=== PATIENT | male | born 1995 | race Caucasian/White ===

== ENCOUNTER 2021-07-05 10:51 | Emergency (ER) | payer BC, SELFPAY ==
[2021-07-05 11:00] VITALS: BP 118/74; BP 122/72; PULSE 80; PULSE 81; RESP 18; TEMP 36.6; O2SAT 100; O2SAT 97; BMI 29.0
--- NOTE | 2021-07-05 12:18 | ED.WEAKNESS ---
HPI - Weakness General Chief complaint: Weakness Stated complaint: etoh last night, not feeling well today Time Seen by Provider: 07/05/21 11:00 Source: patient and family Mode of arrival: ambulatory Limitations: no limitations History of Present Illness HPI Narrative: Patient tells me that he was out drinking alcohol last night. Tells me he drank quite a lot and did eat or drink any water. Today was he at a class. He stood up to go to the bathroom and felt very lightheaded and hot all over. He was witnessed by a friend to pass out. He was caught by them so there is no head strike or fall to the ground. He was incontinent of urine. There was no shaking activity. Patient rouses on his own. Tells me he cannot eat or drink any foods morning prior to the class. On arrival to the ER he is feeling tired but overall feeling okay. No headache, abdominal pain, vomiting, palpitations, shortness of breath or CP Related Data Allergies Allergy/AdvReac Type Severity Reaction Status Date / Time nut - unspecified [NUTS] Allergy Intermediate ANGIOEDEMA Unverified 05/08/20 16:14 all nuts Allergy Unknown throat Uncoded 10/18/17 00:00 swelling, hives Review of Systems Review of Systems: Yes all other systems are reviewed and are negative Constitutional: Constitutional: Reports no additional constitutional complaints, Denies body ache(s), Denies chills, Denies fever(s), Denies headache(s) and Denies weakness Eyes: Eyes: Reports no additional eye complaints and Denies change in vision ENT: Reports system reviewed and no additional complaints, except as documented, Denies dizziness, Denies headache(s), Denies nasal congestion, Denies nasal discharge and Denies neck pain Cardiovascular: Cardiovascular: Reports no additional cardiovascular complaints, Denies chest pain, Reports syncope, Denies leg edema and Denies dyspnea Respiratory: Respiratory: Reports no additional respiratory complaints, Denies cough and Denies dyspnea Gastrointestinal: Gastrointestinal: Reports no additional gastrointestinal complaints, Denies abdominal pain, Denies diarrhea, Denies nausea and Denies vomiting Genitourinary: Genitourinary: Denies urinary incontinence Musculoskeletal: Musculoskeletal: Reports no additional musculoskeletal complaints, Denies back pain, Denies arthralgias, Denies joint swelling, Denies neck pain, Denies numbness and Denies tingling Integumentary/Breasts: Skin/Breast: Reports system reviewed and no additional complaints, except as docu and Denies rash Neurologic: Reports system reviewed and no additional complaints, except as documented, Denies Abnormal speech present, Denies dizziness, Reports syncope, Denies headache(s), Denies numbness, Denies tingling and Denies weakness PMFSH Past Medical History Attestation statement: The following information was validated with the patient. Source: old records reviewed and nursing notes reviewed Social History Social History Advance Directives: No Advance Directives Information Provided: No Physical Exam Vital Signs: Vital Signs: Last Vital Signs Temp 97.8 F 07/05/21 11:00 Pulse 81 07/05/21 11:00 Resp 18 07/05/21 11:00 BP 118/74 07/05/21 11:00 Pulse Ox 97 07/05/21 11:00 Body Mass Index 29.0 Const: General: cooperative, healthy appearing, comfortable and no acute distress Orientation/consciousness: patient oriented x3 Limitations: no limitations HENMT: Head: Yes normal to inspection Ears: hearing grossly normal bilaterally and TM's normal bilaterally General nose exam: Normal external nose present Face and sinus: Yes normal facial exam Mouth: Normal oral and palatal mucosa present Throat: Yes posterior oropharynx normal, Yes tonsils normal and Yes uvula midline Eyes: General: appearance normal, both eyes and all related structures Pupils: Equal, round and reactive pupils present Neck: Neck: Yes normal visual inspection Chest: Chest palpation & inspection: normal inspection of the chest Resp: Effort & Inspection: normal respiratory effort Auscultation: clear to auscultation bilaterally Cardio: Rate: regular rate Rhythm: regular rhythm Peripheral pulses: Peripheral pulses 2+ throughout GI: Inspection: Yes normal to inspection Palpation (GI): Soft to palpation and nontender Auscultation: normal bowel sounds Back/Spine/Pelvis: Thoracic/Lumbar Spine: thoracic and lumbar spine normal to inspection Skin: General skin exam: no rashes or lesions noted Neuro: General: patient oriented x3, no focal motor deficits and normal sensation to monofilament Cranial nerves: Yes CN's II-XII intact bilaterally, Yes Equal, round and reactive pupils present, Yes Bilaterally intact EOM present, Yes Nystagmus not present, Yes Normal facial strength present and Yes Midline tongue present Cognition (Neuro): normal cognition Speech: No Abnormal speech present Gait exam (Neuro): Normal gait present Motor exam (neuro): 5/5 motor strength present throughout Sensory Exam: Normal double simultaneous stimulation for sensation Extrem: General: Yes normal to inspection, Yes no pedal edema and Yes no calf tenderness Course Course Course Narrative: 25-year-old male here after a witnessed syncopal episode. On arrival alert and oriented. Vitals are stable. Patient reports he was out drinking alcohol all night. Not eating food or drinking water. Did not eat or drink anything this morning prior to the episode. He is feeling dehydrated. Will check labs, POC glucose and EKG 1315-labs, glucose, EKG are all unremarkable with the exception of a mildly elevated WBC count. This is not from infection and likely from mild dehydration. Syncope likely secondary to decreased p.o. intake. Patient is alert and oriented in here with a friend. Plan for discharge home the patient increase fluids. Reviewed worrisome signs and symptoms of when to return to the emergency department. Comfortable discharge home. MDM - Weakness MDM Narrative Medical decision making narrative: Less likely ACS with negative EKG and troponin. Less likely arrhythmia with normal EKG Medical Records Attestation: I reviewed the patient's medical records. Lab Data Attestation: I reviewed the patient's lab results. Result diagrams: 07/05/21 12:32 07/05/21 12:32 Labs: Lab Results 07/05/21 07/05/21 07/05/21 Range/Units 12:29 12:32 12:32 WBC 13.1 H (4.8-10.8) X10*3/uL RBC 5.12 (4.60-5.80) X10*6/uL Hgb 15.0 (14.0-18.0) g/dl Hct 43.8 (42.0-52.0) % MCV 85.5 (80.0-98.0) fL MCH 29.3 (27.0-33.0) pg MCHC 34.2 (31.0-36.0) g/dl RDW 12.3 (11.0-16.0) % Plt Count 239 (160-400) X10*3/uL MPV 9.1 L (9.4-12.4) fL Immature Gran % (Auto) 0.4 (0.0-0.4) % Neut % (Auto) 80.3 H (45-73) % Lymph % (Auto) 10.0 L (20-40) % [place] % (Auto) 6.9 (2-11) % Eos % (Auto) 2.1 (0-4) % Baso % (Auto) 0.3 (0-2) % Lymph # (Auto) 1.3 (1.2-4.9) X10*3/uL [place] # (Auto) 0.9 (0.1-1.2) X10*3/uL Eos # (Auto) 0.3 (0.0-0.4) X10*3/uL Baso # (Auto) 0.0 (0.0-0.2) X10*3/uL Abs Immat Gran (auto) 0.05 H (0.00-0.03) X10*3/uL Absolute Neuts (auto) 10.5 H (2.0-8.3) x10*3/uL Absolute Nucleated RBC 0.000 (0.0-0.012) X10*3/uL Nucleated RBC % (auto) 0.0 (0.0-0.2) /100WBC Sodium 138 (135-145) mmol/L Potassium 4.9 (3.3-5.1) mmol/L Chloride 106 (96-108) mmol/L Carbon Dioxide 23 (22-29) mmol/L Anion Gap 14 (12-20) BUN 12 (9-16) mg/dL Creatinine 1.01 (0.5-1.4) mg/dL Estim Creat Clear Calc 136.5 Estimated GFR > 60 POC Glucose 87 (60-115) mg/dL Random Glucose 91 (60-115) mg/dL Calcium 9.5 (8.4-10.2) mg/dL Magnesium 2.2 (1.6-2.6) mg/dL Troponin I High Sens (<3.5-35.0) ng/L 07/05/21 Range/Units 12:32 WBC (4.8-10.8) X10*3/uL RBC (4.60-5.80) X10*6/uL Hgb (14.0-18.0) g/dl Hct (42.0-52.0) % MCV (80.0-98.0) fL MCH (27.0-33.0) pg MCHC (31.0-36.0) g/dl RDW (11.0-16.0) % Plt Count (160-400) X10*3/uL MPV (9.4-12.4) fL Immature Gran % (Auto) (0.0-0.4) % Neut % (Auto) (45-73) % Lymph % (Auto) (20-40) % [place] % (Auto) (2-11) % Eos % (Auto) (0-4) % Baso % (Auto) (0-2) % Lymph # (Auto) (1.2-4.9) X10*3/uL [place] # (Auto) (0.1-1.2) X10*3/uL Eos # (Auto) (0.0-0.4) X10*3/uL Baso # (Auto) (0.0-0.2) X10*3/uL Abs Immat Gran (auto) (0.00-0.03) X10*3/uL Absolute Neuts (auto) (2.0-8.3) x10*3/uL Absolute Nucleated RBC (0.0-0.012) X10*3/uL Nucleated RBC % (auto) (0.0-0.2) /100WBC Sodium (135-145) mmol/L Potassium (3.3-5.1) mmol/L Chloride (96-108) mmol/L Carbon Dioxide (22-29) mmol/L Anion Gap (12-20) BUN (9-16) mg/dL Creatinine (0.5-1.4) mg/dL Estim Creat Clear Calc Estimated GFR POC Glucose (60-115) mg/dL Random Glucose (60-115) mg/dL Calcium (8.4-10.2) mg/dL Magnesium (1.6-2.6) mg/dL Troponin I High Sens < 3.5 (<3.5-35.0) ng/L ECG Data Attestation: I personally reviewed and interpreted this ECG as follows: ECG interpretation date: 07/05/21 ECG interpretation time: 12:39 Interpretation: Normal sinus rhythm with a rate of 69, normal MA, normal QRS normal QT Discharge Plan Discharge Clinical Impression: Syncope Patient Disposition: Home, Self-Care Instructions: Syncope (ED) Additional Instructions: Change positions slowly Eat small frequent meals throughout the day Stay hydrated Referrals: Tianna Hamm FNP [Primary Care Provider] - 2 days Interventions: ED Discharge Assessment Last Done: 07/05/21 13:16
--- NOTE | 2021-07-05 12:24 | ECG_ITS ---
Test Reason : SYNCOPE Blood Pressure : / mmHG Vent. Rate : 069 BPM Atrial Rate : 069 BPM P-R Int : 144 ms QRS Dur : 092 ms QT Int : 390 ms P-R-T Axes : 061 039 018 degrees QTc Int : 417 ms Normal sinus rhythm Normal ECG When compared with ECG of 07-SEP-2013 10:27, T wave amplitude has decreased in Anterolateral leads Heart rate has increased Referred By: Pilar Burns Electronically Signed By:RAMY CHARLES MD
[2021-07-05 12:36] LABS: MANUAL DIFF FLAG NO
[2021-07-05 12:36] LABS: Glucose, Whole Blood 87 mg/dL (60-115)
[2021-07-05 12:37] LABS: Basophils Percent Auto 0.3 % (0-2); Eosinophils Absolute Auto 0.3 X10*3/uL (0.0-0.4); Eosinophils Percent Auto 2.1 % (0-4); Hematocrit 43.8 % (42.0-52.0); Imm Gran Abs Auto 0.05 X10*3/uL (0.00-0.03); Imm Gran Pct Auto 0.4 % (0.0-0.4); Lymphocytes Absolute Auto 1.3 X10*3/uL (1.2-4.9); Mean Corpuscular HGB Conc 34.2 g/dl (31.0-36.0); Mean Corpuscular Hemoglobin 29.3 pg (27.0-33.0); Mean Corpuscular Volume 85.5 fL (80.0-98.0); Mean Platelet Volume 9.1 fL (9.4-12.4); Monocytes Absolute Auto 0.9 X10*3/uL (0.1-1.2); Monocytes Percent Auto 6.9 % (2-11); Neutrophils Absolute Auto 10.5 x10*3/uL (2.0-8.3); Neutrophils Percent Auto 80.3 % (45-73); Platelet Count 239 X10*3/uL (160-400); Red Blood Count 5.12 X10*6/uL (4.60-5.80); Red Cell Distribution Width 12.3 % (11.0-16.0); White Blood Count 13.1 X10*3/uL (4.8-10.8)
[2021-07-05 12:58] LABS: Troponin-I High Sensitivity < 3.5 ng/L (<3.5-35.0)
[2021-07-05 13:05] LABS: Anion Gap 14 (12-20); Blood Urea Nitrogen 12 mg/dL (9-16); Calcium 9.5 mg/dL (8.4-10.2); Carbon Dioxide 23 mmol/L (22-29); Chloride 106 mmol/L (96-108); Creatinine Clr Calc Pharmacy 136.5; Estimated Glomerular Filt Rate > 60; Glucose Random 91 mg/dL (60-115); Magnesium 2.2 mg/dL (1.6-2.6); Potassium 4.9 mmol/L (3.3-5.1); Sodium 138 mmol/L (135-145)
== END 2021-07-05 13:16 | disposition home or self-care (01) ==
PROVIDERS: Nurse Practitioner Family; Emergency Provider Emergency Medicine; PCP Nurse Practitioner Family
DX: R55 Syncope and collapse (principal)
CPT/HCPCS: 36415; 80048; 82947; 83735; 84484; 85025; 93005; 99283; 99284

== ENCOUNTER 2024-04-26 12:18 | Outpatient (AMB) | payer BC, SELFPAY ==
--- NOTE | 2024-04-26 12:30 | A.OFFPC_ITS ---
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 Required: No Accompanied by: Self / Same As Patient Allergies nut - unspecified [NUTS] Allergy (Intermediate, Verified 04/26/24 12:51) ANGIOEDEMA all nuts Allergy (Unknown, Uncoded 04/26/24 12:51) throat swelling, hives Medication List - Last Reconciled 04/26/24 by SERGO Campbell No Known Home Meds Tobacco use date assessed: 04/26/24 Dental Screening Dental Screen Date: 04/26/24 Did you have a dental visit in the last 12 months?: Yes Did you have a dental problem in the last 6 months where you did not have access to dental care?: No Was dental information given to patient?: Patient has dentist 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 Will order labs. Pt c/o increased GERD symptoms. Will send pantoprazole. Encouraged pt to work on his diet and not eat 3 hours before bed. Also recommended lifting the head of his bed up. [facility] Surgical History No pertinent past surgical history Family History Father Depression Anxiety Social History Housing: House Patient Tobacco Use Status: Never used Tobacco e-Cigarette/Vaping Use: Never Used service: No Current occupational status: employed Cognitive needs: No Hearing needs: No Vision needs: No Questionnaire PHQ-9 Over the last 2 weeks, how often have you been bothered by any of the following problems? 1. Little interest or pleasure in doing things: not at all 2. Feeling down, depressed, or hopeless: not at all 3. Trouble falling or staying asleep, or sleeping too much: not at all 4. Feeling tired or having little energy: several days 5. Poor appetite or overeating: not at all 6. Feeling bad about yourself - or that you are a failure or have let yourself or your family down: not at all 7. Trouble concentrating on things, such as reading the newspaper or watching television: not at all 8. Moving or speaking so slowly that other people could have noticed. Or the opposite - being so fidgety or restless that you have been moving around a lot more than usual: not at all 9. Thoughts that you would be better off or of hurting yourself in some way: not at all Total score: 1 Depression Screening Interpretation: Negative Depression Screening Done: Yes 00207 - PHQ-9 Billing: Yes Source: Developed by Drs. Miller Scott, Arlyn Norton, Dash Ellison and colleagues, with an educational simeon from [employer]. Thrive Questionnaire Date Thrive assessed: 04/26/24 I am a: Patient What is your living situation today?: I have a steady place to live Within the past 12 months, did the food you bought not last and you didn't have the money to get more?: Never true Within the past 12 months, did you worry whether your food would run out before you got money to buy more?: Never true Do you have trouble paying for medicines?: No Do you have trouble getting transportation to medical appointments?: No Do you have trouble paying your heating and electricity bill?: No Do you have trouble taking care of your child, family member or friend?: No Do you have trouble with day-to-day activities such as bathing, preparing meals, shopping, managing finances, etc.?: No Are you currently unemployed and looking for a job?: No Are you interested in more education?: No Please select the resources that you would like help with: None Currently or been in a relationship where the following occur: No concerns reported THRIVE Score: 0 AUDIT C Alcohol Use Questionnaire (AUDIT-C) 1. How often do you have a drink containing alcohol?: 2-3 times a week 2. How many drinks containing alcohol do you have on a typical day when you are drinking?: 7 to 9 3. How often do you have six or more drinks on one occasion?: Weekly Total Score: 9 Score Reviewed/Action Taken: Yes JASMIN-7 AMB Questionnaire JASMIN-7 Date JASMIN - 7 assessed: 04/26/24 Feeling nervous, anxious, or on edge: 1 = Several days Not being able to stop or control worryin = Several days Worrying too much about different things: 1 = Several days Trouble relaxin = Not at all Being so restless that it is hard to sit still: 0 = Not at all Becoming easily annoyed or irritable: 0 = Not at all Feeling afraid as if something awful might happen: 0 = Not at all Total JASMIN-7 score (0-4 normal; 5-9 mild; 10-14 moderate; 15-21 severe): 3 Source: Developed by Drs. Miller Scott, Arlyn Norton, Dash Ellison and colleagues, with an educational simeon from [employer]. JASMIN-7 Assessment Billing JASMIN-7 Assessment Tool: JASMIN-7 Assessment 15105 Review of Systems Const Denies chills and Denies fever(s) Eyes Denies blurry vision ENT Denies vertigo, Denies dizziness and Denies sore throat Card Denies chest pain at rest, Denies chest pain with activity, Denies diaphoresis, Denies dyspnea and Denies dyspnea on exertion Resp Denies cough, Denies dyspnea, Denies dyspnea on exertion and Denies wheezing GI Denies abdominal pain, Denies melena, Denies hematochezia, Denies constipation, Reports heartburn, Denies diarrhea and Denies loose stools Denies hematuria Musc Denies numbness and Denies tingling Skin/Breast Denies lesions Neuro Denies vertigo, Denies dizziness, Denies numbness and Denies tingling Psych Reports anxiety, Denies depression, Denies homicidal ideation, Denies suicidal ideation and Denies other (substance abuse) Aller/Immun Denies wheezing Physical exam (Primary Care) Vital Signs: Last Vital Signs Pulse 70 04/26/24 12:31 BP 118/86 04/26/24 12:31 Pulse Ox 97 04/26/24 12:31 Oxygen Delivery Method Room Air 04/26/24 12:31 BMI result Body Mass Index 29.8 Tobacco/Smoking Status: Tobacco use Status Tobacco use date assessed 04/26/24 04/26/24 12:32 Patient Tobacco Use Status Never used Tobacco 04/26/24 12:32 e-Cigarette/Vaping Use Never Used 04/26/24 12:32 PHQ-9: PHQ-9 Score PHQ-9: Total score 1 04/26/24 12:49 Depression Screening Interpretation: Negative Thrive Assessment: Date of Thrive Assessment Date Thrive assessed 04/26/24 04/26/24 12:32 Currently or been in a relationship where the following occur: No concerns reported Const General: cooperative Nutritional Appearance: well nourished Orientation/consciousness: patient oriented x3 HENMT Head: Yes normal to inspection, Yes normocephalic and Yes atraumatic Ears: TM's normal bilaterally Eyes General: appearance normal, both eyes and all related structures Alignment and Position: alignment normal and position normal Neck Neck: Yes normal visual inspection, Yes no lymphadenopathy and Yes supple Resp Effort & Inspection: normal respiratory effort Auscultation: clear to auscultation bilaterally Cardio Rate: regular rate Rhythm: regular rhythm Heart sounds: S1 normal heart sound present, S2 normal heart sound present and no murmurs GI Palpation (GI): Soft to palpation and nontender Auscultation: normal bowel sounds Male General Exam: Yes normal external exam Penis: normal penis Scrotum: scrotum normal, testes descended bilaterally and no inguinal hernias Testes: no testicular mass Skin Rashes: no rashes Neuro General: patient oriented x3, moves all extremities, no focal motor deficits and deep tendon reflexes 2+ bilaterally Romberg Test: Negative Psych Appearance: grossly normal Mental Status: mental status grossly normal Speech and movement: Normal speech and movement present Affect: normal affect Attitude: cooperative Thought process: Normal thought process present Thought content: Normal thought content present Insight: Good insight present (Psych) Judgement: Good judgement present (Psych) Assessment and Plan Assessment & Plan (1) Physical exam: Code(s): Z00.00 - Encounter for general adult medical examination without abnormal findings Plan: Labs ordered (2) GERD (gastroesophageal reflux disease): Code(s): K21.9 - Gastro-esophageal reflux disease without esophagitis Plan: Starting pantoprazole, recommended diet changes, not eating 3 hours before bed, and raising head of bed Plan The patient agreed to the use of a medical device assembler for this encounter. Scribed for SERGO Pak by bolivar Ross scribe, on 04/26/2024 at 12:50 EST. Orders: Orders Complete Blood Count Auto Diff Today Z00.00 - Encounter for general adult medical examination without abnormal findings Comprehensive [place]. Panel Fast Today Z00.00 - Encounter for general adult medical examination without abnormal findings TSH reflex Free T4 Today Z00.00 - Encounter for general adult medical examination without abnormal findings UA CC w/rflx Micro + Cult Today Z00.00 - Encounter for general adult medical examination without abnormal findings Lipid Panel Today Z00.00 - Encounter for general adult medical examination without abnormal findings Medications: New pantoprazole 20 mg PO DAILY 90 tabs 0RF Coding Level of Care Code New Pt Prev Care 18-39yr(38057 Diagnoses Physical exam Z00.00 GERD (gastroesophageal reflux disease) K21.9 Additional Codes JASMIN-7 Assessment Billing - JASMIN-7 Assessment Tool: JASMIN-7 Assessment [id number] ([id number])
[2024-04-26 12:31] VITALS: BP 118/86; PULSE 70; O2SAT 97; BMI 29.8
== END 2024-04-26 13:09 | disposition home or self-care (01) ==
PROVIDERS: PCP Nurse Practitioner Family; Visit Provider Nurse Practitioner Family
DX: Z00.00 Encounter for general adult medical examination without abnormal findings (principal); K21.9 Gastro-esophageal reflux disease without esophagitis
CPT/HCPCS: 99385

== ENCOUNTER 2024-07-25 10:21 | Outpatient (REF) | payer BC, SELFPAY ==
[2024-07-25 14:37] LABS: Influenza A PCR NEGATIVE (Negative); Influenza B PCR NEGATIVE (Negative); Resp Syncy Virus RNA Qual PCR NEGATIVE (Negative); SARS COV2 PCR INHOUSE NEGATIVE (Negative)
== END 2024-07-25 10:22 | disposition home or self-care (01) ==
LOC: HO.LNP 10:21
PROVIDERS: PCP Nurse Practitioner Family; Visit Provider Registered Nurse
DX: J06.9 Acute upper respiratory infection, unspecified (principal)
CPT/HCPCS: 0241U; 87880

== ENCOUNTER 2024-07-25 10:21 | Outpatient (AMB) | payer BC, SELFPAY ==
--- NOTE | 2024-07-25 11:05 | MHC.OFFWIV ---
Intake Vital Signs 07/25/24 11:06 Height 6 ft 1 in Weight 226 lb BMI 29.8 BP 118/76 Blood Pressure Location Rt brachial Position Sitting Pulse 74 Pulse Source Pulse Oximeter Temp 97.9 F Temp Source Oral Pulse Oximetry (%) 98 Oxygen Delivery Method Room Air Intake Visit Reasons: EP sore throat, nausea Intake Note: Patient here for sore throat and body aches that started yesterday. Patient Tobacco Use Status: Never used Tobacco Allergies nut - unspecified [NUTS] Allergy (Intermediate, Verified 07/25/24 11:07) ANGIOEDEMA all nuts Allergy (Unknown, Uncoded 07/25/24 11:07) throat swelling, hives Do you need a note to return to daycare/school/sports/work: Yes HPI EP sore throat, nausea HPI Details This note is constructed using voice recognition software. While every effort has been made to ensure accuracy, vulcanizing machine operator errors may have been included. The patient is a 28 year old male who presents to the clinic today with sore throat and body aches since yesterday. He denies fever, chills, shortness of breath. He does report that there is a mild cough that isn't active. He took zinc yesterday to try to help the symptoms, however it had not helped yet. He has had no known sick contacts, however he does note that his parents are sick with COVID but he has not seen them for 2 weeks. [facility] Surgical History No pertinent past surgical history Family History Father Depression Anxiety Social History Housing: House Patient Tobacco Use Status: Never used Tobacco e-Cigarette/Vaping Use: Never Used service: No Current occupational status: employed Cognitive needs: No Hearing needs: No Vision needs: No Review of Systems Const All systems reviewed & are unremarkable except as noted in HPI and below Physical Exam Vital Signs: Last Vital Signs Temp 97.9 F 07/25/24 11:06 Pulse 74 07/25/24 11:06 BP 118/76 07/25/24 11:06 Pulse Ox 98 07/25/24 11:06 Oxygen Delivery Method Room Air 07/25/24 11:06 BMI result Body Mass Index 29.8 Const General: cooperative, healthy appearing, comfortable and no acute distress Orientation/consciousness: patient oriented x3 Limitations: no limitations HEENT Head: Yes normal to inspection Ears: hearing grossly normal bilaterally, external ears normal and TM's normal bilaterally General nose exam: Normal external nose present, Normal nares present and No nasal discharge present Face and sinus: Yes normal facial exam and Yes sinuses nontender Mouth: Normal oral and palatal mucosa present and moist mucous membranes Throat: Yes tonsils normal, Yes uvula midline and Yes posterior oropharynx abnormal (Erythema) Eyes General: appearance normal, both eyes and all related structures Neck Neck: Yes normal visual inspection Resp Effort & Inspection: normal respiratory effort, able to speak in complete sentences, Actively coughing, no respiratory distress, not tachypneic, no tripod positioning and no use of accessory muscles Auscultation: clear to auscultation bilaterally Cardio Jugular venous distension: no JVD Rate: regular rate Rhythm: regular rhythm Heart sounds: S1 normal heart sound present, S2 normal heart sound present, no click, no gallops, no murmurs and no rubs Skin General skin exam: no rashes or lesions noted, elasticity normal and turgor normal Neuro General: patient oriented x3 Extrem General: Yes normal to inspection and Yes no clubbing, cyanosis or edema Results AMB Rapid Strep AMB Rapid Strep Negative Last Edit by JAVID Desai on 07/25/24 11:20 Results Reviewed Results Reviewed: Laboratory Last Values Strep Scn Rapid Clinic Negative 07/25/24 11:19 Assessment & Plan Assessment & Plan (1) URI (upper respiratory infection): Code(s): J06.9 - Acute upper respiratory infection, unspecified Qualifiers: URI type: unspecified URI Qualified Code(s): J06.9 - Acute upper respiratory infection, unspecified Plan: In office rapid strep negative. Viral swab obtained to rule out Covid, Influenza, and RSV based on symptoms. Advised mask wearing while symptomatic and quarantine per current CDC guidelines. Reviewed at home support methods including hydration, humidification, vix vapor rub, sinus rinse, and otc treatment options. Discussed treatment with antiviral therapy for covid with paxlovid and with Tamiflu for influenza, including appropriate use and side effects, and need to start medication within 5 day of symptom onset, preferably within 48 hours of symptom onset. Patient wishes to proceed decline antiviral therapy. Advised follow up with worsening symptoms such as dyspnea at rest, which would require emergent evaluation. Plan See above for full details and plan. Orders: Orders AMB Rapid Strep Screen Today Z13.9 - Encounter for screening, unspecified SARS-CoV2/FLU/RSV Today J06.9 - Acute upper respiratory infection, unspecified Coding Level of Care Code Est Pt Level 3 (14802) Diagnoses Upper respiratory tract infection, unspecified type J06.9 URI type: unspecified URI
[2024-07-25 11:06] VITALS: BP 118/76; PULSE 74; TEMP 36.6; O2SAT 98; BMI 29.8
== END 2024-07-25 11:36 | disposition home or self-care (01) ==
PROVIDERS: PCP Nurse Practitioner Family; Visit Provider Registered Nurse
DX: Z13.9 Encounter for screening, unspecified (principal); J06.9 Acute upper respiratory infection, unspecified

== ENCOUNTER 2024-07-25 11:26 | Outpatient (REF) | payer BC, SELFPAY | END 2024-07-25 11:27 | disposition home or self-care (01) | LOC: HO.LAB 11:26 | PROVIDERS: Visit Provider Registered Nurse | DX: Z13.89 Encounter for screening for other disorder (principal) ==

== ENCOUNTER 2025-03-06 13:37 | Outpatient (AMB) | payer BC, SELFPAY ==
--- NOTE | 2025-03-06 13:44 | A.OFFPC_ITS ---
Vital Signs 03/06/25 13:45 Height 6 ft 1 in Weight 233 lb BMI 30.7 BP 122/88 Blood Pressure Location Lt brachial Position Sitting Pulse 84 Pulse Source Pulse Oximeter Temp 98.2 F Temp Source Oral Pulse Oximetry (%) 98 Oxygen Delivery Method Room Air Intake Visit Reasons: 6M F/U Ends Breakage Clerk Required: No Accompanied by: Self / Same As Patient Allergies nut - unspecified (NUTS) Allergy (Intermediate, Verified 03/06/25 13:47) ANGIOEDEMA all nuts Allergy (Unknown, Uncoded 07/25/24 11:07) throat swelling, hives Medication List - Last Reconciled 03/06/25 by Yunier Coronado, [facility]- pantoprazole 20 mg PO DAILY Tobacco use date assessed: 03/06/25 Dental Screening Dental Screen Date: 03/06/25 Did you have a dental visit in the last 12 months?: Yes Did you have a dental problem in the last 6 months where you did not have access to dental care?: No Was dental information given to patient?: Patient has dentist HPI 6M F/U HPI Details Chief Complaint The patient reports for a follow-up regarding Gastroesophageal Reflux Disease (GERD). History of Present Illness The patient is a 29-year-old male presenting with a follow-up for Gastroesophageal Reflux Disease (GERD). He reports that pantoprazole has been significantly effective in managing his symptoms. The patient has been advised to monitor his diet closely, particularly avoiding acidic foods, and to ensure that he goes to bed at least three hours after his last meal to help manage his condition. Future laboratory tests have been encouraged to monitor his condition further. Social History Health Maintenance - Dietary modifications to avoid acidic foods - Timing of meals to ensure at least thr ee hours before bedtime Review of Systems Physical Exam General: Cooperative, healthy appearing, comfortable, no acute distress and well developed Orientation: Patient oriented x3 Limitations: No limitations Head: Normal to inspection Ears: Hearing grossly normal bilaterally Nose: Normal external nose present Face and sinus: Normal facial exam Eyes: Appearance normal, both eyes and all related structures Neck: Normal visual inspection and Yes full ROM Respiratory: Normal respiratory effort and able to speak in complete sentences. Clear to auscultation bilaterally Cardiovascular: Regular rate and rhythm. Normal S1 and S2 GI: Normal to inspection. Soft to palpation and nontender Results Plan The patient will continue with pantoprazole as it has been effective in managing his GERD symptoms. He is advised to adhere to dietary modifications, specificall y avoiding acidic foods, and to maintain a routine of eating at least three hours before bedtime to mitigate symptoms. Future laboratory tests are recommended to monitor his condition and ensure effective management. Discussion Notes I discussed with the patient the importance of continuing pantoprazole for GERD management and emphasized dietary modifications, including avoiding acidic foods and timing meals appropriately. I also recommended future laboratory tests to monitor his condition. Patient Instructions - Continue taking pantoprazole as prescr ibed. - Avoid acidic foods and eat at least th ree hours before going to bed. - Plan to get lab tests done in [facility] re to monitor your condition. [facility] Surgical History No pertinent past surgical history Family History Father Depression Anxiety Social History Housing: House Patient Tobacco Use Status: Never used Tobacco e-Cigarette/Vaping Use: Never Used service: No Current occupational status: employed Cognitive needs: No Hearing needs: No Vision needs: No Questionnaire PHQ-9 Over the last 2 weeks, how often have you been bothered by any of the following problems? 1. Little interest or pleasure in doing things: not at all 2. Feeling down, depressed, or hopeless: not at all 3. Trouble falling or staying asleep, or sleeping too much: not at all 4. Feeling tired or having little energy: several days 5. Poor appetite or overeating: not at all 6. Feeling bad about yourself - or that you are a failure or have let yourself or your family down: not at all 7. Trouble concentrating on things, such as reading the newspaper or watching television: not at all 8. Moving or speaking so slowly that other people could have noticed. Or the opposite - being so fidgety or restless that you have been moving around a lot more than usual: not at all 9. Thoughts that you would be better off or of hurting yourself in some way: not at all Total score: 1 Depression Screening Interpretation: Negative Depression Screening Done: Yes 03395 - PHQ-9 Billing: Yes Source: Developed by Drs. Miller Scott, Arlyn Norton, Dash Ellison and colleagues, with an educational simeon from [employer]. Thrive Questionnaire Date Thrive assessed: 04/26/24 I am a: Patient What is your living situation today?: I have a steady place to live Within the past 12 months, did the food you bought not last and you didn't have the money to get more?: Never true Within the past 12 months, did you worry whether your food would run out before you got money to buy more?: Never true Do you have trouble paying for medicines?: No Do you have trouble getting transportation to medical appointments?: No Do you have trouble paying your heating and electricity bill?: No Do you have trouble taking care of your child, family member or friend?: No Do you have trouble with day-to-day activities such as bathing, preparing meals, shopping, managing finances, etc.?: No Are you currently unemployed and looking for a job?: No Are you interested in more education?: Yes Please select the resources that you would like help with: None Currently or been in a relationship where the following occur: No concerns reported THRIVE Score: 0 AUDIT C Alcohol Use Questionnaire (AUDIT-C) 1. How often do you have a drink containing alcohol?: 2-3 times a week 2. How many drinks containing alcohol do you have on a typical day when you are drinking?: 5 or 6 3. How often do you have six or more drinks on one occasion?: Weekly Total Score: 8 Score Reviewed/Action Taken: Yes JASMIN-7 AMB Questionnaire JASMIN-7 Date JASMIN - 7 assessed: 03/06/25 Feeling nervous, anxious, or on edge: 1 = Several days Not being able to stop or control worryin = Not at all Worrying too much about different things: 1 = Several days Trouble relaxin = Not at all Being so restless that it is hard to sit still: 0 = Not at all Becoming easily annoyed or irritable: 0 = Not at all Feeling afraid as if something awful might happen: 0 = Not at all Total JASMIN-7 score (0-4 normal; 5-9 mild; 10-14 moderate; 15-21 severe): 2 Source: Developed by Drs. Miller Scott, Arlyn Norton, Dash Ellison and colleagues, with an educational simeon from [employer]. JASMIN-7 Assessment Billing JASMIN-7 Assessment Tool: JASMIN-7 Assessment 91136 Physical exam (Primary Care) Vital Signs: Last Vital Signs Temp 98.2 F 03/06/25 13:45 Pulse 84 03/06/25 13:45 BP 122/88 03/06/25 13:45 Pulse Ox 98 03/06/25 13:45 Oxygen Delivery Method Room Air 03/06/25 13:45 BMI result Body Mass Index 30.7 Tobacco/Smoking Status: Tobacco use Status Tobacco use date assessed 03/06/25 03/06/25 13:48 Patient Tobacco Use Status Never used Tobacco 03/06/25 13:48 e-Cigarette/Vaping Use Never Used 03/06/25 13:48 PHQ-9: PHQ-9 Score PHQ-9: Total score 1 03/06/25 13:48 Depression Screening Interpretation: Negative Thrive Assessment: Date of Thrive Assessment Date Thrive assessed 04/26/24 03/06/25 13:48 Currently or been in a relationship where the following occur: No concerns reported Coding Level of Care Code Est Pt Level 3 (71456) Diagnoses GERD (gastroesophageal reflux disease) K21.9 Additional Codes JASMIN-7 Assessment Billing - JASMIN-7 Assessment Tool: JASMIN-7 Assessment 52549 ([id number]) PHQ-9 - 42253 - PHQ-9 Billing: Yes ([id number]) Assessment & Plan Assessment & Plan (1) GERD (gastroesophageal reflux disease): Code(s): K21.9 - Gastro-esophageal reflux disease without esophagitis Category: Medical Plan . Medications: Refilled pantoprazole 20 mg PO DAILY 90 tabs 3RF
[2025-03-06 13:45] VITALS: BP 122/88; PULSE 84; TEMP 36.8; O2SAT 98; BMI 30.7
--- OUTSIDE RECORDS SUMMARY | 2025-03-06 14:29 | XMS_ITS | Clinical Summary ---
Author Organization [facility] Address [address] [place] [phone] Phone Care Team Providers Care Vibration Engineer Name Role Phone Leanna Heard MD Primary Care Provider Unava ilable Immunizations Immunization Administration Dates Next Due DTP 02/25/1995, 4,1993, 994 DTaP 5 10/03/1998 Hep B, ped/adol 05/14/1994,1993,1993 Hib (PRP-T) 11/08/1994, 4,1993, 994 Influenza, intranasal, quadrivalent 2013 Influenza, intranasal, trivalent 05/27/2011,04/22 MMR 10/30/1997,11/08/1994 Meningococcal Conj (Menactra) MCV4P 04/15/2008 OPV 10/03/1998, 4,1993, 994 Tdap 04/22/2006 Varicella 04/15/2008,12/22/1998 Family History Relation Name Status Comments Father Alive Father: Alive a nd well Mother Alive Mother: acid re flux Sister Alive Sister: Alive a nd well Social History Tobacco Use Types Packs/Day Years Used Date Smoking Tobacco: Never Comments:Never smoker Sex and Gender Information Value Date Recorded Sex Assigned at Not on file Legal Sex Male 4:56 PM EDT Gender Identity Not on file Sexual Orientation Not on file Last Filed Vital Signs Vital Sign Reading Time Taken Comments Blood Pressure 123/71 06/03/2015 12:00 AM EDT Pulse 88 06/03/2015 12:00 AM EDT Temperature 36.4 C (97.6 F) 06/03/2015 12:00 AM EDT Respiratory Rate - - Oxygen Saturation 97% 09/06/2013 12:00 AM EST Inhaled Oxygen Concentration - - Weight 79.4 kg (175 lb) 06/03/2015 12:00 AM EDT Height 182.2 cm (5' 11.75 ) 06/03/2015 12:00 AM EDT Body Mass Index 23.9 06/03/2015 12:00 AM EDT Plan of Treatment Health Maintenance Due Date Last Done Comments DTaP,Tdap,and Td Vaccines (7 - Td or Tdap) 04/22/2016 04/22/2006, 10/03/1998, 02/25/1995, Additional history exists COVID-19 Vaccine ( season) 2024 Influenza Vaccines (#1) 2025 08/08/20 13, 05/27/2011, 05/07/2010 Hepatitis B Vaccines Completed 05/14/1994, 1993, 1993 HIB Vaccines Completed 11/08/1994, 01/21, 1993, Additional history exists MMR Vaccines Completed 10/30/1997, 11/08/1994 IPV Vaccines Completed 10/03/1998, 01/21, 1993, Additional history exists Meningococcal Vaccine Aged Out 04/15/2008 No mariaa jose luis eligible based on patient's age to complete this topic Varicella Vaccines Completed 04/15/2008, 12/22/1998 HPV Vaccines Aged Out No longer eligi ble based on patient's age to complete this topic Hepatitis A Vaccines Aged Out No long er eligible based on patient's age to complete this topic Men B Vaccine Aged Out No longer elig ible based on patient's age to complete this topic Pneumococcal Vaccine Aged Out No long er eligible based on patient's age to complete this topic Care Teams Vibration Engineer Relationship Specialty Start Date End Date Leanna Heard MD PCP - General 04/01/17
== END 2025-03-06 13:59 | disposition home or self-care (01) ==
LOC: HO.HMCC 13:38
PROVIDERS: PCP Nurse Practitioner Family; Visit Provider Nurse Practitioner Family
DX: K21.9 Gastro-esophageal reflux disease without esophagitis (principal)

== ENCOUNTER → 2025-03-06 13:37 | Outpatient (BNVA) | payer BC, SELFPAY | PROVIDERS: PCP Nurse Practitioner Family; Visit Provider Nurse Practitioner Family | DX: K21.9 Gastro-esophageal reflux disease without esophagitis (principal) | CPT/HCPCS: 96127 ==